=== PATIENT | male | born 1975 | race Hispanic/Latino ===

== ENCOUNTER 2017-08-15 20:51 | Emergency (ER) | payer BC ==
[2017-08-15 21:09] VITALS: BMI 31.9
--- NOTE | 2017-08-15 22:02 | ED PDOC ---
Arrival/HPI <Demetrio Pennington - Last Filed: 08/16/17 02:27> - General Historian: Patient - History of Present Illness Time/Duration: Prior to Arrival Symptom Onset: Gradual Symptom Course: Worsening Quality: Aching, Tightness Severity Level: 6 Activities at Onset: Rest Context: Home <Yamil Cardona - Last Filed: 08/16/17 05:29> - General Chief Complaint: Upper Extremity Problem/Injury Time Seen by Provider: 08/15/17 21:31 - History of Present Illness Narrative History of Present Illness (Text): 08/15/17 22:03 Patient is a 42 M with history of depression presenting with complaints of right neck pain which radiated down to right shoulder which began three weeks ago. Patient states he originally didn't think much of the pain until when it began worsening these past 3 days. Patient also endorses that he noticed acute swelling of his right bicep which began today. Patient denies fevers, chills, pain, trauma, injury, recent exercise. (Yamil Cardona) Past Medical History - Provider Review Nursing Documentation Reviewed: Yes - Infectious Disease Hx of Infectious Diseases: None - Tetanus Immunization Tetanus Immunization: Unknown - Past Medical History Past Medical History: No Previous - Cardiac Hx Cardiac Disorders: Yes Hx Hypertension: Yes - Psychiatric Hx Psychophysiologic Disorder: Yes Hx Depression: Yes Hx Emotional Abuse: No Hx Physical Abuse: No Hx Substance Use: No - Past Surgical History Past Surgical History: No Previous - Surgical History Hx Tonsillectomy: Yes Other/Comment: ear tubes as a child - Suicidal Assessment Feels Threatened In Home Enviroment: No <Yamil Cardona - Last Filed: 08/16/17 05:29> Family/Social History - Physician Review Nursing Documentation Reviewed: Yes Family/Social History: Blood Clots (cousin) Smoking Status: Never Smoked Hx Alcohol Use: Yes (Daily drinking varies) Frequency of alcohol use: Socially Hx Substance Use: No <Yamil Cardona - Last Filed: 08/16/17 05:29> Allergies/Home Meds <Demetrio Pennington - Last Filed: 08/16/17 02:27> <Yamil Cardona - Last Filed: 08/16/17 05:29> Allergies/Adverse Reactions: Allergies Penicillins Allergy (Verified 08/15/17 21:15) ANAPHYLAXIS Sulfa (Sulfonamide Antibiotics) Allergy (Verified 08/15/17 21:15) ANAPHYLAXIS Home Medications: Home Meds Medication Instructions Recorded Confirmed Sertraline [Zoloft] 100 mg PO DAILY 08/15/17 08/15/17 Review of Systems - Physician Review All systems were reviewed & negative as marked: Yes - Review of Systems Constitutional: absent: Fatigue Respiratory: absent: SOB, Cough Cardiovascular: absent: Chest Pain Gastrointestinal: absent: Abdominal Pain, Diarrhea, Nausea, Vomiting Musculoskeletal: Neck Pain, Myalgias (right shoulder). absent: Back Pain Skin: absent: Rash Neurological: absent: Headache, Dizziness Endocrine: Normal Hemo/Lymphatic: Normal Psychiatric: Normal <Yamil Cardona - Last Filed: 08/16/17 05:29> Physical Exam Vital Signs Reviewed: Yes Temperature: Afebrile Blood Pressure: Normal Pulse: Regular Respiratory Rate: Normal Appearance: Positive for: Well-Appearing, Non-Toxic, Comfortable Pain Distress: None Mental Status: Positive for: Alert and Oriented X 3 - Systems Exam Head: Present: Atraumatic, Normocephalic Pupils: Present: PERRL Extroacular Muscles: Present: EOMI Conjunctiva: Present: Normal Mouth: Present: Moist Mucous Membranes Neck: Present: Normal Range of Motion Respiratory/Chest: Present: Clear to Auscultation. No: Wheezes, Rhonchi Cardiovascular: Present: Regular Rate and Rhythm, Normal S1, S2 Abdomen: Present: Normal Bowel Sounds. No: Tenderness, Distention Upper Extremity: Present: Normal Inspection, Edema (right upper extremity), Erythema (right upper extremity) Lower Extremity: Present: Normal Inspection. No: Edema Neurological: Present: GCS=15, CN II-XII Intact, Speech Normal Skin: Present: Warm, Normal Color Psychiatric: Present: Alert, Oriented x 3, Normal Insight, Normal Concentration <Yamil Cardona - Last Filed: 08/16/17 05:29> Vital Signs Temp Pulse Resp BP Pulse Ox 08/16/17 00:55 98.2 F 84 22 122/78 98 08/15/17 21:11 98.6 F 90 18 125/86 97 Medical Decision Making <Demetrio Pennington - Last Filed: 08/16/17 02:27> <Yamil Cardona - Last Filed: 08/16/17 05:29> ED Course and Treatment: Patient Seen With Resident: In agreement with resident note, which includes further HPI details. Patient was seen and evaluated with resident, came up with plan and treatment together. 42 year old male presents complaining of right neck pain that radiates down to the right shoulder that began 3 weeks ago. Plan: -- Motrin Tab -- Duplex Upper Extrem Vein Right US (Demetrio Pennington) 08/15/17 22:19 Upper extremity DVT vs Muscle spasm vs Thoracic outlet syndrome Duplex US of right upper extremity Motrin Flexeril offered; patient refused 08/16/17 01:07 Preliminary Duplex US of right upper extremity negative for DVT; patient sent home with motrin (Yamil Cardona) - RAD Interpretation Radiology Orders: 08/15/17 22:02 DUPLEX UPPER EXTRM VEIN RIGHT [US] Stat - Medication Orders Current Medication Orders: Discontinued Medications Ibuprofen (Motrin Tab) 600 mg PO STAT STA Stop: 08/15/17 22:14 Last Admin: 08/15/17 23:22 Dose: 600 mg MAR Pain/Vitals Document 08/15/17 23:22 HI (Rec: 08/15/17 23:22 [facility] [id number]) Pain Reassessment Is This A Pain ReAssessment? No Sleep Is patient sleeping during reassessment? No Presence of Pain Presence of Pain Yes Pain Scale Used Pain Scale Used Numeric Location Left, Right or Bilateral Right Pain Location Body Site Neck Description Radiating Intensity 7 Scale Used Numeric - Scribe Statement The provider has reviewed the documentation as recorded by the Scribe <Demetrio Pennington - Last Filed: 08/16/17 02:27> <Yamil Cardona - Last Filed: 08/16/17 05:29> - Scribe Statement Marbella Parekh Provider Scribe Attestation: All medical record entries made by the Scribe were at my direction and personally dictated by me. I have reviewed the chart and agree that the record accurately reflects my personal performance of the history, physical exam, medical decision making, and the department course for this patient. I have also personally directed, reviewed, and agree with the discharge instructions and disposition. (Demetrio Pennington) Disposition/Present on Arrival <Demetrio Pennington - Last Filed: 08/16/17 02:27> - Present on Arrival Any Indicators Present on Arrival: No History of DVT/PE: No History of Uncontrolled Diabetes: No Urinary Catheter: No History of Decub. Ulcer: No History Surgical Site Infection Following: None - Disposition Have Diagnosis and Disposition been Completed?: Yes Disposition Time: 00:50 Patient Plan: Discharge <Yamil Cardona - Last Filed: 08/16/17 05:29> - Disposition Diagnosis: Muscle spasm Disposition: HOME/ ROUTINE Condition: GOOD Discharge Instructions (ExitCare): Muscle Spasms (DC) Additional Instructions: Mr. Gonzáles, thank you for letting us take care of you today. Your provider was Dr. Pennington. The emergency medical care you received today was directed at your acute symptoms. If you were prescribed any medication, please fill it and take as directed. It may take several days for your symptoms to resolve. Return to the Emergency Department if your symptoms worsen, do not improve, or if you have any other problems. Please contact your doctor or call one of the physicians/clinics you have been referred to that are listed on the Patient Visit Information form that is included in your discharge packet. Bring any paperwork you were given at discharge with you along with any medications you are taking to your follow up visit. Our treatment cannot replace ongoing medical care by a primary care provider (PCP) outside of the emergency department. Thank you for allowing the [facility] team to be part of your care today. If you had an X-Ray or CT scan: A Radiologist will review the ED reading if any change in treatment is needed we will contact you. If you had a blood, urine, or wound culture: It will take several days for the results, if any change in treatment is needed we will contact you. If you had an STI test: It will take 48 hours for the results. Please call after 1 week if you have not heard back. Prescriptions: Ibuprofen [Motrin] 600 mg PO Q6H #28 tab Referrals: Atilio Penaloza MD [Primary Care Provider] - Follow up with primary Forms: [employer] ([place])
[2017-08-16 02:25] VITALS: BP 122/78; PULSE 84; RESP 22; TEMP 98.2; O2SAT 98
--- NOTE | 2017-08-16 14:20 | US ---
PROCEDURE: Right upper extremity venous US CLINICAL HISTORY: Arm pain and swelling Evaluate for deep venous thrombosis. PHYSICIAN(S): Vasquez Aviles M.D FINDINGS: The visualized rightinternal jugular vein is sonographically normal and compressible. No evidence of obstruction or thrombus is seen. The visualized segments of the right subclavian vein are patent with normal waveforms. No sonographic evidence of obstruction or thrombosis is seen. The visualized deep venous system of the proximal right upper extremity is sonographically normal and compressible. IMPRESSION: 1. No sonographic evidence for deep venous thrombosis in the visualized segments of the right upper extremity.
== END 2017-08-16 00:55 | disposition home or self-care (01) ==
LOC: ED 20:51
DX: M62.838 Other muscle spasm (principal); I10 Essential (primary) hypertension